=== PATIENT | female | born 1975 | race Caucasian/White ===

== ENCOUNTER 2022-08-16 11:57 | Outpatient (CLI) | payer BC, SELFPAY | END 2022-08-16 11:58 | disposition home or self-care (01) | PROVIDERS: Visit Provider Family Medicine | DX: R53.83 Other fatigue (principal); E55.9 Vitamin D deficiency, unspecified; I10 Essential (primary) hypertension; Z13.6 Encounter for screening for cardiovascular disorders | CPT/HCPCS: 80048; 80061; 85025 ==

== ENCOUNTER 2025-03-01 15:06 | Outpatient (CLI) | payer BC, SELFPAY | END 2025-03-01 15:07 | disposition home or self-care (01) | PROVIDERS: PCP Family Medicine; Visit Provider Family Medicine | DX: R53.83 Other fatigue (principal); R23.2 Flushing; E55.9 Vitamin D deficiency, unspecified | CPT/HCPCS: 80048; 80061; 82306; 82670; 83001; 83002; 84443; 85025 ==